=== PATIENT | female | born 1980 | race Caucasian/White ===

== ENCOUNTER → 2016-10-10 | Outpatient (CLI) | payer BC ==
--- NOTE | 2016-10-10 10:32 | RADIOLOGY REPORT (SQ) ---
EXAM DESCRIPTION: T SPINE AP/LAT COMPLETED DATE/TIME: 10/10/2016 10:18 am REASON FOR STUDY: ACUTE LOW BACK AND THORACIC BACK PAIN COMPARISON: None. NUMBER OF VIEWS: Two views. TECHNIQUE: AP and lateral radiographic images acquired of the thoracic spine. LIMITATIONS: None. FINDINGS: MINERALIZATION: Normal. ALIGNMENT: Normal. No scoliosis. VERTEBRAE: No fracture or bone lesion. Maintained height, normal segmentation. DISCS: No significant loss of height or significant narrowing. No large osteophytes. HARDWARE: None in the spine. MEDIASTINUM AND SOFT TISSUES: Normal heart size and aortic contour. No soft tissue abnormality. VISUALIZED LUNG PEDERSON: Clear. OTHER: No other significant finding. IMPRESSION: NO SIGNIFICANT RADIOGRAPHIC FINDING IN THE THORACIC SPINE. TECHNICAL DOCUMENTATION: JOB ID: [id number] [employer]- All Rights Reserved
--- NOTE | 2016-10-10 10:41 | RADIOLOGY REPORT (SQ) ---
EXAM DESCRIPTION: LUMBAR SPINE COMPLETE COMPLETED DATE/TIME: 10/10/2016 10:18 am REASON FOR STUDY: ACUTE LOW BACK AND THORACIC BACK PAIN COMPARISON: None. NUMBER OF VIEWS: Five views including obliques. TECHNIQUE: AP, lateral, oblique, and sacral radiographic images acquired of the lumbar spine. LIMITATIONS: None. FINDINGS: MINERALIZATION: Normal. SEGMENTATION: Normal. No transitional anatomy. ALIGNMENT: Normal. VERTEBRAE: Maintained height. No fracture or worrisome bone lesion. DISCS: Preserved height. No significant osteophytes or end plate irregularity. POSTERIOR ELEMENTS: Pedicles and facets are intact. No pars defect or posterior arch defects. HARDWARE: None in the spine. PARASPINAL SOFT TISSUES: Normal. PELVIS: Intact as visualized. No fractures or worrisome bone lesions. SI joints intact. OTHER: No other significant finding. IMPRESSION: No significant vertebral compression or disc space reduction is seen. Other findings as noted above TECHNICAL DOCUMENTATION: JOB ID: [id number] [employer]- All Rights Reserved
== END ==
LOC: OD 09:57
PROVIDERS: ATTEND Physician Assistant
DX: M54.5 Low back pain (principal); M54.6 Pain in thoracic spine
CPT/HCPCS: 72070; 72110

== ENCOUNTER 2018-06-29 11:38 | Emergency (ER) | payer BC, MEDICAID ==
--- NOTE | 2018-06-29 12:26 | ER Document Report ---
ED General - General Chief Complaint: Blood Pressure Problem Stated Complaint: BLOOD PRESSURE ISSUES Time Seen by Provider: 06/29/18 12:14 Primary Care Provider: ODILIA REYES PA-C [NO LOCAL MD] - Follow up in 3-5 days Notes: Patient is a 37-year-old female with history of hypertension that presents to the emergency department for chief complaint of intermittent headaches, palpitations. Patient states that she can feel when her blood pressure is getting high, she was prescribed propranolol from an urgent care, has been taking it as needed for this, but more recently she is not sure when to take it, has been nervous about it, stating she is had multiple symptoms including palpitations, and headaches at times. She has not been able to follow-up with her primary care regarding this. She states she is not been able to take her blood pressure recently either, so she is not entirely sure if it has been running high, she states she always had low blood pressure that would run in the 80s or 90s systolic, but more recently has been in the 120s-130s systolic. She denies having any associated chest pain, shortness of breath, difficulty breathing, nausea or vomiting. 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 Past Medical History: Hypertension, seasonal allergies Past Surgical History: , breast reduction, tummy tuck Social History: Admits to rare alcohol use, denies tobacco or drug use. Family History: Reviewed and noncontributory for presenting illness Allergies: Reviewed, see documented allergy list. REVIEW OF SYSTEMS: Other than noted above, the 12 point review of systems was reviewed with the patient and were negative, all pertinent findings are included in the HPI. PHYSICAL EXAMINATION: Vital signs reviewed, nursing noted reviewed. GENERAL: Well-appearing, well-nourished and in no acute distress. HEAD: Atraumatic, normocephalic. EYES: Eyes appear normal, extraocular movements intact, sclera anicteric, conjunctiva are normal. ENT: nares patent, oropharynx clear without exudates. Moist mucous membranes. NECK: Normal range of motion, supple without lymphadenopathy, no thyromegaly LUNGS: Breath sounds clear to auscultation bilaterally and equal. No wheezes rales or rhonchi. HEART: Regular rate and rhythm without murmurs ABDOMEN: Soft, nontender, normoactive bowel sounds. No rebound, guarding, or rigidity. No masses appreciated. EXTREMITIES: Nontender, good range of motion, no pitting or edema. NEUROLOGICAL: No focal neurological deficits. Moves all extremities spontaneously Motor and sensory grossly intact on exam. PSYCH: Patient is mildly anxious on exam, mood appropriate SKIN: Warm, Dry, normal turgor, no rashes or lesions noted on exposed skin TRAVEL OUTSIDE OF THE [place] IN LAST 30 DAYS: No - Related Data Allergies/Adverse Reactions: ciprofloxacin [From Cipro] Allergy (Intermediate, Verified 06/29/18 12:12) ciprofloxacin HCl [From Cipro] Allergy (Intermediate, Verified 06/29/18 12:12) Penicillins Allergy (Verified 06/29/18 12:12) swelling Past Medical History - Social History Smoking Status: Never Smoker Frequency of alcohol use: None Drug Abuse: None Family History: Reviewed & Not Pertinent Patient has suicidal ideation: No Patient has homicidal ideation: No Pulmonary Medical History: Reports: Hx Asthma Neurological Medical History: Reports: Hx Migraine Renal/ Medical History: Denies: Hx Peritoneal Dialysis Past Surgical History: Reports: Hx Abdominal Surgery - tummy tuck, Hx Appendectomy, Hx Breast Surgery - reduction, Hx Section - Immunizations Hx Diphtheria, Pertussis, Tetanus Vaccination: Yes Physical Exam - Vital signs Vitals: Temp Pulse Resp BP Pulse Ox 99.1 F 75 18 126/72 H 100 06/29/18 11:44 06/29/18 11:44 06/29/18 11:44 06/29/18 11:44 06/29/18 11:44 Course - Re-evaluation Re-evalutation: Patient seen and examined vital signs reviewed. Laboratory data were ordered as appropriate for the patient's presenting symptoms and complaint, with consideration of any critical or life threatening conditions that may be associated with their obtained history and exam as noted above. Results were reviewed when available and demonstrated unremarkable workup, negative and normal TSH, normal CBC and BMP The patient was re-evaluated and was stable, I discussed with the patient in length, that she may benefit from being on easier medication to take such as atenolol, low-dose 12.5 mg daily, as her blood pressure is already reasonably well controlled, and to discontinue propranolol which the patient was agreeable to. On exam today she was not complaining of any headache, just stating that she would get it when she felt her blood pressure was getting high, and she did not have any chest pain today either, at this point I feel comfortable discharging the patient home to follow-up. Evaluation was most consistent with hypertension, palpitations. Results were discussed with the patient at this point, after careful consideration I feel that that patient can be discharged from the emergency department, the patient was educated treatments and reasons to return to the emergency department based on their presumed diagnosis as noted above, they were advised to followup with a primary care physician in 2-3 days. Patient was agreeable to plan of care. *Note is created using voice recognition software and may contain spelling, syntax or grammatical errors. Laboratory 06/29/18 06/29/18 06/29/18 12:33 12:33 12:33 WBC 9.3 RBC 4.49 Hgb 13.3 Hct 39.0 MCV 87 MCH 29.7 MCHC 34.2 RDW 14.7 H Plt Count 310 Seg Neutrophils % 76.2 Lymphocytes % 13.8 Monocytes % 8.5 Eosinophils % 1.1 Basophils % 0.4 Absolute Neutrophils 7.1 Absolute Lymphocytes 1.3 Absolute Monocytes 0.8 Absolute Eosinophils 0.1 Absolute Basophils 0.0 Sodium 138.5 Potassium 4.3 Chloride 103 Carbon Dioxide 24 Anion Gap 12 BUN 15 Creatinine 0.78 Est GFR ( Amer) > 60 Est GFR (Non-Af Amer) > 60 Glucose 98 Calcium 9.8 TSH 1.21 Free T4 1.12 - Vital Signs Vital signs: Temp Pulse Resp BP Pulse Ox 98.6 F 85 18 113/73 100 06/29/18 14:46 06/29/18 14:46 06/29/18 14:46 06/29/18 14:46 06/29/18 14:46 - Laboratory Result Diagrams: 06/29/18 12:33 06/29/18 12:33 Laboratory results interpreted by me: 06/29/18 12:33 RDW 14.7 H Discharge - Discharge Clinical Impression: Palpitations Hypertension Qualifiers: Hypertension type: unspecified Qualified Code(s): I10 - Essential (primary) hypertension Condition: Stable Disposition: HOME, SELF-CARE Instructions: High Blood Pressure ([facility]) Additional Instructions: Please take the new medication as prescribed, and please follow-up with your primary care physician, if you develop lightheadedness, dizziness or feel like he may pass out, I would discontinue the medication, if your symptoms are not improving, please follow-up with the primary care, if you develop severe or sudden headaches, do not hesitate to return to the emergency department. Prescriptions: RX: Atenolol [Tenormin] 12.5 mg PO DAILY #15 tablet Referrals: ODILIA REYES PA-C [NO LOCAL MD] - Follow up in 3-5 days
[2018-06-29 12:48] LABS: ABSOLUTE EOSINOPHILS # (AUTO) 0.1 10^3/uL (0.0-0.6); ABSOLUTE LYMPHOCYTES (AUTO) 1.3 10^3/uL (0.5-4.7); ABSOLUTE MONOCYTES (AUTO) 0.8 10^3/uL (0.1-1.4); ABSOLUTE NEUT (AUTO) 7.1 10^3/uL (1.7-8.2); BASOPHILS % (AUTO) 0.4 % (0-2); EOSINOPHILS % (AUTO) 1.1 % (0-6); HEMOGLOBIN 13.3 g/dL (12.0-15.5); LYMPHOCYTES % (AUTO) 13.8 % (13-45); MEAN CORPUSCULAR HEMOGLOBIN 29.7 pg (27.0-33.4); MEAN CORPUSCULAR HGB CONC 34.2 g/dL (32.0-36.0); MEAN CORPUSCULAR VOLUME 87 fl (80-97); MONOCYTES % (AUTO) 8.5 % (3-13); PLATELET COUNT 310 10^3/uL (150-450); RED BLOOD COUNT 4.49 10^6/uL (3.72-5.28); RED CELL DISTRIBUTION WIDTH 14.7 % (11.5-14.0); SEGMENTED NEUTROPHILS % (AUTO) 76.2 % (42-78); TOTAL CELLS COUNTED % (AUTO) 100 %; WHITE BLOOD COUNT 9.3 10^3/uL (4.0-10.5)
[2018-06-29 13:14] LABS: ANION GAP 12 (5-19); BLOOD UREA NITROGEN 15 mg/dL (7-20); CALCIUM 9.8 mg/dL (8.4-10.2); CARBON DIOXIDE 24 mmol/L (22-30); CHLORIDE 103 mmol/L (98-107); GLUCOSE 98 mg/dL (75-110); POTASSIUM 4.3 mmol/L (3.6-5.0); SODIUM 138.5 mmol/L (137-145)
[2018-06-29 13:31] LABS: FREE T4 (FREE THYROXINE) 1.12 ng/dL (0.78-2.19)
[2018-06-29 13:45] LABS: THYROID STIMULATING HORMONE 1.21 uIU/mL (0.47-4.68)
[2018-06-29 14:51] VITALS: BP 113/73
== END 2018-06-29 14:46 | disposition home or self-care (01) ==
LOC: ER 11:38
DX: I10 Essential (primary) hypertension (principal); R00.2 Palpitations; J45.909 Unspecified asthma, uncomplicated; Z88.1 Allergy status to other antibiotic agents; Z88.0 Allergy status to penicillin
CPT/HCPCS: 36415; 80048; 84439; 84443; 85025; 99283

== ENCOUNTER 2018-12-16 14:23 | Emergency (ER) | payer BC ==
--- NOTE | 2018-12-16 14:56 | ER Document Report ---
ED Medical Screen (RME) - General Chief Complaint: Headache Stated Complaint: BACK PAIN Time Seen by Provider: 12/16/18 14:52 Primary Care Provider: TANNA LARA NP [Primary Care Provider] - Follow up as needed Mode of Arrival: Ambulatory Information source: Patient Notes: 38-year-old female presents to ED for complaint of headache for a week and a half and headache has been for at least a week he wakes up every day. She states she is also having muscle cramps in various areas. She thought the headache was because of her blood pressure but her blood pressure is low today. She also has chronic back pain. She states she has been having pain in the left side of her face. She states she has also gotten bad enough that at times she is shaking. She states she has not had any of the symptoms in the past. She states he is not having anxiety or nervousness. He states she is been going to a primary care doctor but was not been able to get into them and they know the whole history of this. She states she does not know what is connected to what is not connected but she is just given all the symptoms she has. I have greeted and performed a rapid initial assessment of this patient. A comprehensive ED assessment and evaluation of the patient, analysis of test results and completion of medical decision making process will be conducted by an additional ED providers. TRAVEL OUTSIDE OF THE [place] IN LAST 30 DAYS: No - Related Data Allergies/Adverse Reactions: ciprofloxacin [From Cipro] Allergy (Intermediate, Verified 12/16/18 14:29) ciprofloxacin HCl [From Cipro] Allergy (Intermediate, Verified 12/16/18 14:29) Penicillins Allergy (Verified 12/16/18 14:29) swelling Past Medical History Pulmonary Medical History: Reports: Hx Asthma Neurological Medical History: Reports: Hx Migraine Renal/ Medical History: Denies: Hx Peritoneal Dialysis Past Surgical History: Reports: Hx Abdominal Surgery - tummy tuck, Hx Appendectomy, Hx Breast Surgery - reduction, Hx Section - Immunizations Hx Diphtheria, Pertussis, Tetanus Vaccination: Yes Physical Exam - Vital signs Vitals: Temp Pulse Resp BP Pulse Ox 98.7 F 67 16 98/68 L 100 12/16/18 14:44 12/16/18 14:44 12/16/18 14:44 12/16/18 14:44 12/16/18 14:44 Course - Vital Signs Vital signs: Temp Pulse Resp BP Pulse Ox 98.7 F 67 16 98/68 L 100 12/16/18 14:44 12/16/18 14:44 12/16/18 14:44 12/16/18 14:44 12/16/18 14:44 Doctor's Discharge - Discharge Referrals: TANNA LARA, [employer] OPERATOR CHIEF [Primary Care Provider] - Follow up as needed
[2018-12-16] MEDS ORDERED: ONDANSETRON 4 MG TAB.RAPDIS PO ONE (14:57)
[2018-12-16] MEDS ORDERED: KETOROLAC TROMETHAMINE 60 MG/2 ML SDV IM ONE (14:57)
[2018-12-16 17:15] LABS: ABSOLUTE BASOPHILS # (AUTO) 0.1 10^3/uL (0.0-0.2); ABSOLUTE EOSINOPHILS # (AUTO) 0.3 10^3/uL (0.0-0.6); ABSOLUTE LYMPHOCYTES (AUTO) 1.8 10^3/uL (0.5-4.7); ABSOLUTE MONOCYTES (AUTO) 0.8 10^3/uL (0.1-1.4); ABSOLUTE NEUT (AUTO) 4.6 10^3/uL (1.7-8.2); BASOPHILS % (AUTO) 1.2 % (0-2); EOSINOPHILS % (AUTO) 3.8 % (0-6); HEMATOCRIT 41.4 % (36.0-47.0); HEMOGLOBIN 13.7 g/dL (12.0-15.5); LYMPHOCYTES % (AUTO) 23.5 % (13-45); MEAN CORPUSCULAR HEMOGLOBIN 28.9 pg (27.0-33.4); MEAN CORPUSCULAR HGB CONC 33.1 g/dL (32.0-36.0); MEAN CORPUSCULAR VOLUME 87 fl (80-97); MONOCYTES % (AUTO) 11.2 % (3-13); PLATELET COUNT 322 10^3/uL (150-450); RED BLOOD COUNT 4.74 10^6/uL (3.72-5.28); RED CELL DISTRIBUTION WIDTH 14.7 % (11.5-14.0); SEGMENTED NEUTROPHILS % (AUTO) 60.3 % (42-78); TOTAL CELLS COUNTED % (AUTO) 100 %; WHITE BLOOD COUNT 7.6 10^3/uL (4.0-10.5)
[2018-12-16 17:19] LABS: APPEARANCE,URINE CLEAR; BILIRUBIN,URINE NEGATIVE (NEGATIVE); COLOR,URINE STRAW; GLUCOSE, URINE NEGATIVE (NEGATIVE); KETONES,URINE NEGATIVE (NEGATIVE); LEUKOCYTE ESTERASE,URINE NEGATIVE (NEGATIVE); NITRITE,URINE NEGATIVE (NEGATIVE); PROTEIN,URINE NEGATIVE (NEGATIVE); URINE SPECIFIC GRAVITY 1.003; UROBILINOGEN,URINE NEGATIVE mg/dL (<2.0)
[2018-12-16 17:34] LABS: ALBUMIN 4.7 g/dL (3.5-5.0); ALKALINE PHOSPHATASE 41 U/L (38-126); ANION GAP 7 (5-19); ASPARTATE AMINO TRANSFERASE 20 U/L (14-36); BILIRUBIN,DIRECT 0.1 mg/dL (0.0-0.4); BILIRUBIN,TOTAL 0.3 mg/dL (0.2-1.3); BLOOD UREA NITROGEN 6 mg/dL (7-20); CALCIUM 9.8 mg/dL (8.4-10.2); CARBON DIOXIDE 28 mmol/L (22-30); CHLORIDE 106 mmol/L (98-107); GLUCOSE 94 mg/dL (75-110); POTASSIUM 4.6 mmol/L (3.6-5.0); TOTAL PROTEIN 7.8 g/dL (6.3-8.2)
[2018-12-16 17:47] LABS: FREE T3 3.6 pg/mL (2.77-5.27); FREE T4 (FREE THYROXINE) 1.02 ng/dL (0.78-2.19)
[2018-12-16 17:54] LABS: C-REACTIVE PROTEIN < 5.0 mg/L (<10.0)
[2018-12-16 17:58] LABS: ERYTHROCYTE SEDIMENTATION RATE 10 mm/hr (0-20)
[2018-12-16 18:01] LABS: THYROID STIMULATING HORMONE 1.14 uIU/mL (0.47-4.68)
--- NOTE | 2018-12-16 21:53 | RADIOLOGY REPORT (SQ) ---
EXAM DESCRIPTION: CT HEAD WITHOUT IV CONTRAST COMPLETED DATE/TME: 12/16/2018 20:44 CLINICAL HISTORY: 38 years, Female, headache COMPARISON: 02/16/2014. TECHNIQUE: Noncontrast CT brain. Images stored on PACS. All CT scanners at this facility use dose modulation, iterative reconstruction, and/or weight based dosing when appropriate to reduce radiation dose to as low as reasonably achievable (ALARA). [facility]: Dose Right [facility]: CareDose [facility]: Dose Right [facility]: Teradose 4D [facility]: [employer] LIMITATIONS: None. FINDINGS: The ventricles, sulci, and cisterns are within normal limits. The cain-white matter differentiation is preserved. There is no mass effect, midline shift, intra- or extra-axial fluid collection/acute hemorrhage. The osseous structures are unremarkable. The paranasal sinuses and mastoid air cells are clear. IMPRESSION: No acute intracranial abnormalities. TECHNICAL DOCUMENTATION: Quality ID # [id number]: Final reports with documentation of one or more dose reduction techniques (e.g., Automated exposure control, adjustment of the mA and/or kV according to patient size, use of iterative reconstruction technique) copyright 2011 [employer]- All Rights Reserved
--- NOTE | 2018-12-16 23:37 | ER Document Report ---
ED General - General Chief Complaint: Headache Stated Complaint: BACK PAIN Time Seen by Provider: 12/16/18 14:52 Primary Care Provider: TANNA LARA NP [Primary Care Provider] - Follow up as needed Mode of Arrival: Ambulatory Information source: Patient - You are welcome to get the keys on giving she is and they are now writhing around saying I did give her any more pain Notes: 38-year-old female complaining of weeks of headache on and off. And low back pain. She has chronic low back pain is seen her family doctor for the same. Last few weeks has been complaining of pain in burning feeling in her thighs when laying down the bed at night. Legs are not shaking or moving is not restless legs. She has has burning sensation into her anterior thighs. She cam e in today because she was getting sleep last few nights because of this. Also had a headache earlier in the day that is now gone. She has chronic headaches intermittently. Has been seen by her family doctor for the same over the years. But is never had an evaluation with CT scan or MRI of her head. No falls no injuries. This is not new she has no incontinence She has no numbness no perineal numbness. No retention symptoms. No UTI symptoms. TRAVEL OUTSIDE OF THE [place] IN LAST 30 DAYS: No - HPI Onset: Other - Weeks - Related Data Allergies/Adverse Reactions: ciprofloxacin [From Cipro] Allergy (Intermediate, Verified 12/16/18 14:29) ciprofloxacin HCl [From Cipro] Allergy (Intermediate, Verified 12/16/18 14:29) Penicillins Allergy (Verified 12/16/18 14:29) swelling Past Medical History - General Information source: Patient - Oh - Social History Smoking Status: Never Smoker Frequency of alcohol use: Social Drug Abuse: None Lives with: Family Family History: Reviewed & Not Pertinent Patient has suicidal ideation: No Patient has homicidal ideation: No - Medical History Medical History: Negative Pulmonary Medical History: Reports: Hx Asthma Neurological Medical History: Reports: Hx Migraine Renal/ Medical History: Denies: Hx Peritoneal Dialysis Past Surgical History: Reports: Hx Abdominal Surgery - tummy tuck, Hx Appendectomy, Hx Breast Surgery - reduction, Hx Section - Immunizations Hx Diphtheria, Pertussis, Tetanus Vaccination: Yes Review of Systems - Review of Systems Constitutional: No symptoms reported EENT: No symptoms reported Cardiovascular: No symptoms reported Respiratory: No symptoms reported Gastrointestinal: No symptoms reported Genitourinary: No symptoms reported Female Genitourinary: No symptoms reported Musculoskeletal: Back pain Skin: No symptoms reported. denies: Rash Hematologic/Lymphatic: No symptoms reported Physical Exam - Vital signs Vitals: Temp Pulse Resp BP Pulse Ox 98.7 F 67 16 98/68 L 100 12/16/18 14:44 12/16/18 14:44 12/16/18 14:44 12/16/18 14:44 12/16/18 14:44 - Notes Notes: PHYSICAL EXAMINATION: GENERAL: Well-appearing, well-nourished and in no acute distress. HEAD: Atraumatic, normocephalic. EYES: Pupils equal round and reactive to light, extraocular movements intact, sclera anicteric, conjunctiva are normal. ENT: nares patent, oropharynx clear without exudates. Moist mucous membranes. NECK: Normal range of motion, supple without lymphadenopathy LUNGS: Breath sounds clear to auscultation bilaterally and equal. No wheezes ra les or rhonchi. HEART: Regular rate and rhythm without murmurs ABDOMEN: Soft, nontender, normoactive bowel sounds. No guarding, no rebound. No masses appreciated. EXTREMITIES: Normal range of motion, no pitting or edema. No cyanosis. NEUROLOGICAL: No focal neurological deficits. Moves all extremities spontaneously and on command. PSYCH: Normal mood, normal affect. SKIN: Warm, Dry, normal turgor, no rashes or lesions noted. Mainly Back exam is normal. No paravertebral no bony tenderness. Negative straight leg raising. Neurologically intact. Strength is good gait is normal. Course - Re-evaluation Re-evalutation: 12/16/18 23:39 Patient has no headache now. No symptoms now no symptoms during my exam. I d iscussed with her the results and plan. Her CK is negative her blood work is normal. I will prescribe her cyclobenzaprine. It help her with her leg symptoms may be and help her get some rest. I discussed with her she needs to follow-up with her family doctor possibly needs an MRI of her lumbar spine. - Vital Signs Vital signs: Temp Pulse Resp BP Pulse Ox 98.7 F 67 16 98/68 L 100 12/16/18 14:44 12/16/18 14:44 12/16/18 14:44 12/16/18 14:44 12/16/18 14:44 - Laboratory Result Diagrams: 12/16/18 16:49 12/16/18 16:49 Laboratory results interpreted by me: 12/16/18 12/16/18 16:49 16:49 RDW 14.7 H BUN 6 L - Diagnostic Test Radiology reviewed: Reports reviewed - Negative head CT. Discharge - Discharge Clinical Impression: Headache Qualifiers: Headache type: unspecified Leg pain, anterior Qualifiers: Laterality: unspecified laterality Qualified Code(s): M79.606 - Pain in leg, unspecified Condition: Stable Disposition: HOME, SELF-CARE Instructions: Headache ([facility]) Additional Instructions: Follow-up with your family doctor Wednesday morning. You may need an MRI of your low back. This may be be causing some your symptoms in your legs. Return if any concerns. Prescriptions: Cyclobenzaprine HCl [Flexeril 10 mg Tablet] 10 mg PO QHS PRN #15 tablet PRN Reason: Referrals: TANNA LARA NP [Primary Care Provider] - Follow up as needed
[2018-12-16 23:59] VITALS: BP 104/67
== END 2018-12-16 23:57 | disposition home or self-care (01) ==
LOC: ER 14:23
DX: R51 Headache (principal); R20.8 Other disturbances of skin sensation; M79.652 Pain in left thigh; M79.651 Pain in right thigh; M54.5 Low back pain; G89.29 Other chronic pain; Z88.1 Allergy status to other antibiotic agents; Z88.0 Allergy status to penicillin; J45.909 Unspecified asthma, uncomplicated
CPT/HCPCS: 36415; 84439; 82550; 83690; 84443; 84703; 85025; 85652; 81025; 86140; 80053; 81001; 84481; 70450; J1885; 96372; 99284